=== PATIENT | male | born 1995 | race Caucasian/White ===

== ENCOUNTER 2020-04-28 11:55 | Emergency (ER) | payer OTHER ==
[2020-04-28 12:48] LABS: HEMOGLOBIN 15.8 gm/dl (14.0-17.5); RED BLOOD COUNT 5.19 M/UL (4.20-5.50); WHITE BLOOD COUNT 9.6 K/UL (4.5-11.0)
[2020-04-28 13:23] LABS: BUN/CREATININE RATIO 9 (0-10)
[2020-04-28] MEDS ORDERED: METFORMIN HCL500 MG PO (15:58)
[2020-04-28] MEDS ORDERED: Glucometer (16:02)
[2020-04-28] MEDS ORDERED: glucometer strips (16:02)
== END 2020-04-28 16:28 | disposition home or self-care (01) ==
LOC: ER1 11:55
PROVIDERS: Physician Assistant Medical
DX: E11.9 Type 2 diabetes mellitus without complications (principal); I10 Essential (primary) hypertension; Z88.0 Allergy status to penicillin; Z79.4 Long term (current) use of insulin
CPT/HCPCS: 71046; 80053; 81001; 82010; 82550; 82553; 82803; 82962; 83036; 83690; 83874; 84484; 85025; 85379; 93005; 99284; J7120